=== PATIENT | male | born 1980 | race Caucasian/White ===

== ENCOUNTER 2021-09-11 11:17 | Emergency (ER) | payer OTHER ==
[2021-09-11 12:22] LABS: BASOPHIL 0.7 % (0-2); EOSINOPHIL 0.9 % (0-5); HCT 44.9 % (42.0-52.0); HGB 15.6 g/dl (13.2-18.0); LYMPHOCYTE 25.7 % (15-48); MCH 32.8 pg (25.0-31.0); MCHC 34.7 g/dL (32.0-36.0); MCV 94.5 fL (78.0-100.0); MONOCYTE 4.4 % (0-12); MPV 9.1 fL (6.0-9.5); NEUTROPHIL 67.8 % (41-80); NRBC 0; PLT 269 K/uL (150-400); RBC 4.75 M/uL (4.70-6.00); RDW 12.5 % (11.5-14.0); WBC 5.9 K/uL (4.0-10.5)
[2021-09-11 12:27] LABS: INR 1.06 (0.9-1.2); PROTHROMBIN TIME 13.2 SECONDS (11.8-13.4); PTT 21.5 SECONDS (24.4-34.7)
[2021-09-11 12:37] LABS: BILIRUBIN - TOTAL 0.9 mg/dL (0.2-1.0); BUN/CREAT RATIO (CALC) 5.6 RATIO; CREATININE 0.89 mg/dL (0.67-1.17); GLOBULIN (CALCULATION) 3.9 g/dL; POTASSIUM 3.6 mmol/L (3.5-5.1); TOTAL PROTEIN 7.9 g/dL (6.4-8.2)
== END 2021-09-11 13:55 | disposition home or self-care (01) ==
LOC: FER 11:17
PROVIDERS: Emergency Medicine
DX: R55 Syncope and collapse (principal); F10.129 Alcohol abuse with intoxication, unspecified; I10 Essential (primary) hypertension; Z88.5 Allergy status to narcotic agent; Z79.899 Other long term (current) drug therapy
CPT/HCPCS: 36415; 71045; 80053; 82553; 83690; 84484; 85025; 85610; 85730; 93005; G0480